=== PATIENT | female | born 1955 | race Caucasian/White ===

== ENCOUNTER 2018-04-05 09:27 | Outpatient (CLI) | payer BC | END 2018-04-05 11:27 | disposition home or self-care (01) | LOC: VAS 09:27 | DX: Z53.29 Procedure and treatment not carried out because of patient's decision for other reasons (principal) ==

== ENCOUNTER 2018-04-05 09:39 | Outpatient (RCR) | payer BC | END 2018-04-30 | disposition home or self-care (01) | LOC: WCC 09:39 | DX: L97.812 Non-pressure chronic ulcer of other part of right lower leg with fat layer exposed (principal); E11.622 Type 2 diabetes mellitus with other skin ulcer; I11.9 Hypertensive heart disease without heart failure; I10 Essential (primary) hypertension; E11.9 Type 2 diabetes mellitus without complications; Z95.1 Presence of aortocoronary bypass graft; Z85.9 Personal history of malignant neoplasm, unspecified; Z79.82 Long term (current) use of aspirin ==